=== PATIENT | female | born 1980 | race Asian ===

== ENCOUNTER → 2020-02-07 | Outpatient (CLI) | payer OTHER ==
[~2020-02-07] MED LIST: ADVIL200 MG PO; ZOFRAN ODT4 MG PO
== END ==
LOC: COL.RAD 07:29
DX: M51.24 Other intervertebral disc displacement, thoracic region (principal); M51.26 Other intervertebral disc displacement, lumbar region; M48.061 Spinal stenosis, lumbar region without neurogenic claudication